=== PATIENT | male | born 1980 | race Caucasian/White ===

== ENCOUNTER 2020-06-17 01:10 | Emergency (ER) | payer OTHER ==
[~2020-06-17] VITALS: Ht 175.3 cm; Wt 100.0 kg
[2020-06-17] MEDS ORDERED: ACETAMINOPHEN 325MG TABLET PO ONE (02:00)
[2020-06-17] MEDS ORDERED: LOSARTAN POTASSIUM 50 MG TABLET PO ONE (02:00)
[2020-06-17] MEDS ORDERED: LOSA50TA41 PO (04:25)
[2020-06-17 04:30] VITALS: BP 157/89
== END 2020-06-17 05:15 ==
LOC: ER 01:10
DX: I10 Essential (primary) hypertension (principal); E11.9 Type 2 diabetes mellitus without complications; Z88.8 Allergy status to other drugs, medicaments and biological substances
CPT/HCPCS: 93005; 99284